=== PATIENT | male | born 1955 | race Caucasian/White ===

== ENCOUNTER 2019-09-09 16:57 | Emergency (ER) | payer OTHER ==
[2019-09-09] MEDS ORDERED: Lidocaine 1% with EPINEPHrine 1:100,000 50 ML MDV INFILT ONE (17:39)
[2019-09-09] MEDS ORDERED: Bacitracin Oint 1 GM U/D Packet TOP ONE (17:40)
--- NOTE | 2019-09-09 17:45 | EDM.PDOC ---
ED HPI GENERAL MEDICAL PROBLEM - General Chief Complaint: Laceration Stated Complaint: CUT ON WRIST Time Seen by Provider: 09/09/19 17:17 Source of Information: Reports: Patient History Limitations: Reports: No Limitations - History of Present Illness INITIAL COMMENTS - FREE TEXT/NARRATIVE: 63 yo male presents to ER with laceration to posterior left wrist. He was cleaning his chimney and struck arm on metal. bleeding is currently controlled. Left Wrist Pain Score (Numeric/FACES): 3 - Related Data Allergies Allergy/AdvReac Type Severity Reaction Status Date / Time No Known Allergies Allergy Verified 09/09/19 18:02 Past Medical History - Infectious Disease History Infectious Disease History: Reports: Chicken Pox - Past Surgical History GI Surgical History: Reports: Cholecystectomy Musculoskeletal Surgical History: Reports: Other (See Below) Other Musculoskeletal Surgeries/Procedures:: back and shoulder surgery Social & Family History - Tobacco Use Smoking Status *Q: Never Smoker - Caffeine Use Caffeine Use: Reports: Coffee - Recreational Drug Use Recreational Drug Use: No ED ROS GENERAL - Review of Systems Review Of Systems: See Below Constitutional: Denies: Fever, Chills Respiratory: Denies: Shortness of Breath, Wheezing Cardiovascular: Denies: Chest Pain ED EXAM, SKIN/RASH Exam: See Below Exam Limited By: No Limitations General Appearance: Alert, WD/WN, No Apparent Distress Respiratory/Chest: No Respiratory Distress Extremities: Other (laceration to left posterior wrist) ED SKIN PROCEDURES - Laceration/Wound Repair Left Posterior Arm Appearance: Superficial, Subcutaneous, Linear Distal NVT: Neuro & Vascular Intact, No Tendon Injury, Other (the tendon was explosed but intact) Anesthetic Type: Local Local Anesthesia - Lidocaine (Xylocaine): 1% with EPI Skin Prep: Chlorhexidine (Hibiciens), Saline, Sterile Drape Exploration/Debridement/Repair: Wound Explored, In a Bloodless Field, Explored to Base, No Foreign Material Found Closed with: Sutures Lac/Wound length In cm: 3 Suture Size: 4-0 # of Sutures: 7 Suture Type: Nylon, Interrupted, Simple Sterile Dressing Applied: Nurse Tetanus Status Addressed: Yes Complications: No Course - Vital Signs Last Recorded V/S: Last Vital Signs Temp 36.0 C 09/09/19 18:02 Pulse 64 09/09/19 18:02 Resp 16 09/09/19 18:02 BP 138/77 09/09/19 18:02 Pulse Ox 97 09/09/19 18:02 - Orders/Labs/Meds Meds: Medications Discontinued Medications Generic Name Dose Route Start Last Admin Trade Name Antonio PRN Reason Stop Dose Admin Bacitracin 1 dose 09/09/19 17:40 09/09/19 18:03 Bacitracin Oint 1 Gm TOP 09/09/19 17:41 1 dose ONETIME ONE Administration Lidocaine/Epinephrine 5 ml 09/09/19 17:39 09/09/19 18:03 Xylocaine 1% With Epinephrine 1:100,000 INFILT 09/09/19 17:40 5 ml ONETIME ONE Administration Departure - Departure Time of Disposition: 18:33 Disposition: Home, Self-Care 01 Condition: Good Clinical Impression: Laceration - Discharge Information *PRESCRIPTION DRUG MONITORING PROGRAM REVIEWED*: Not Applicable *COPY OF PRESCRIPTION DRUG MONITORING REPORT IN PATIENT DENIZ: Not Applicable Instructions: Laceration Care, Adult, [id number], Stitches, [place], or Adhesive Wound Closure, [id number] Referrals: PCP,None [Primary Care Provider] - Forms: ED Department Discharge Additional Instructions: sutures out in 7 days follow-up for wound check if numbness or movement abnormalities in you fingers observe for signs of infection: fire engine red, purulent drainage increase in pain. cephalexin twice daily for 3 days ice as much as possible over the next few days
== END 2019-09-09 18:51 | disposition home or self-care (01) ==
LOC: JP.ED 16:57
DX: S61.512A Laceration without foreign body of left wrist, initial encounter (principal); W26.8XXA Contact with other sharp object(s), not elsewhere classified, initial encounter
CPT/HCPCS: 12002; 99282